=== PATIENT | male | born 1970 | race Caucasian/White ===

== ENCOUNTER 2024-01-17 20:00 | Emergency (ER) | payer BC, SELFPAY ==
[2024-01-17 20:03] VITALS: BP 122/82
--- NOTE | 2024-01-17 20:21 | ED.GENMED ---
History of Present Illness
General
Chief Complaint: Anxiety
Time Seen by Provider: 01/17/24 20:21
History of Present Illness
History of Present Illness:
TIME OF INITIAL ENCOUNTER: 8:25 PM
HPI: The patient presents due to intermittent racing thoughts throughout the day today. He woke this morning, went to the gym, but continued to feel somewhat overheated on his way to work. He had intermittent episodes of feeling overheated and
felt that he had these thoughts every 90 minutes or so that worried him. He does not necessarily describe anxiety though. He had some questionable palpitations. He states he had a recent physical with his primary care doctor and blood work which
were unremarkable. He denies any stress or anxiety currently. He drinks alcohol on the weekends and has been trying to cut back as this leads to insomnia. He did have poor sleep over night last night.
EXAM:
GENERAL: Well appearing in no distress
HEENT: Moist oral mucosa
CARDIOVASCULAR: No murmurs, normal heart rate, regular rhythm, No chest wall tenderness
PULMONARY: No respiratory distress, breath sounds are clear and equal
ABDOMEN: Soft with no peritoneal signs, no tenderness
NEUROLOGIC: Excellent strength all extremities, no coordination deficits
PSYCHIATRIC: Appropriate mental status, normal insight and judgement
EXTREMITIES: Nontender, no edema, moves all extremities equally
SKIN: No rash, no lesions
NUMBER AND COMPLEXITY OF PROBLEMS ADDRESSED AT THE ENCOUNTER
� Chronic conditions affecting care: No significant past medical history however does describe symptoms consistent with OCD
� Acute Exacerbation and/or Progression of Chronic Illness: This is an acute problem
� Differential Diagnosis includes: OCD, anxiety, hyperthyroidism
AMOUNT AND/OR COMPLEXITY OF DATA TO BE REVIEWED AND ANALYZED
� I performed an independent evaluation of and my interpretation is:
EKG: Sinus 63, leftward axis deviation, RSR' pattern
CT:
X-rays:
Laboratory Studies: CBC unremarkable, chemistries unremarkable with exception of mild transaminase elevation, alcohol undetected
Other:
� Review of other/old records: I reviewed records, the patient had a Holter monitor which was unremarkable in 2021
� Clinical information was obtained by an independent historian: I spoke to the at bedside
� Prescriptions/Medications Considered but not given:
� Further testing considered but not performed:
RISK OF COMPLICATIONS AND/OR MORBIDITY OR MORTALITY OF PATIENT MANAGEMENT
� Social determinants of health affecting care: Lives at home
� Discussion with other providers:
� Escalation of care including admission/observation vs risk of discharge considered: Currently, the patient has appropriate mental status with no abnormal psychiatric findings on exam. Given the associated overheated feeling,
will check work including TSH. He has appropriate insight and judgment currently.
ANY OTHER UPDATES:
10 PM: I reassessed patient. There has been no further episodes. Unclear etiology of patient's symptoms as she does not feel that this is necessarily related to anxiety. Throughout his stay in the emergency department, he had appropriate mental
status with no aphasia and has been interacting appropriately.
Phy Exam
Physical Exam
Physical Exam:
See HPI
Course
Orders/Labs/Results
Orders:
Orders
01/17/24 20:06
ECG [Electrocardiogram (*1)] Urgent
Reason for Study: Other
Other Reason for Exam: ANXIETY, PALPITATIONS
EKG- Treatment ONCE
01/17/24 21:04
Alcohol Urgent
Complete Blood Count/With Diff Urgent
Comprehensive Metabolic Panel Urgent
TSH Reflex To Free T4 Urgent
Abnormal Lab Results
01/17/24
21:04
Hct 37.8 L %
(39.0-52.0)
MCV 79.6 L fL
(80.0-94.0)
Glucose 111 H mg/dl
(70-99)
AST 72 H U/L
(17-59)
ALT 63 H U/L
(0-50)
01/17/24 21:04
01/17/24 21:04
Vital Signs
Initial and Last Documented VS:
Initial Vital Signs
Temp Pulse Resp BP Pulse Ox
97.8 F 70 20 122/82 100
01/17/24 20:03 01/17/24 20:03 01/17/24 20:03 01/17/24 20:03 01/17/24 20:03
Last Documented Vital Signs
Temp Pulse Resp BP Pulse Ox
97.8 F 70 20 110/82 96
01/17/24 20:03 01/17/24 20:03 01/17/24 20:03 01/17/24 22:00 01/17/24 22:00
*Critical Care Note
Total Time (30-74mins, 75-104mins- exclusive of procedures): Not Applicable
ED Attending Note
-
Portions of this chart may have been created with voice recognition software.� Occasional wrong word or��sound alike� substitutions may have occurred due to the inherent limitations of voice recognition software.
Discharge Plan
Departure
Patient Disposition: Home (Routine Discharge)
Date of Disposition: 01/17/24
Time of Disposition: 22:03
Patient with high blood pressure during this ER visit?: Yes
Discharge Problem:
Anxiety
Instructions: Anxiety, Adult (DC), BLOOD PRESSURE
Referrals:
Josiah Byrne MD [Family Provider] -
Activity Restrictions/Additional Instructions:
The cause of your symptoms is unclear. Basic blood work is unremarkable. EKG is unremarkable. Thyroid screening test was also checked and was normal. Return here if worse or other concerns.
Interventions
Interventions:
*Risk Screen - Suicide Last Done: 01/17/24 20:01
*General Assessment Last Done: 01/17/24 20:25
*Neglect/Abuse Screening Last Done: 01/17/24 20:07
ED- Fall Risk Assessment Last Done: 01/17/24 20:25
*ED COVID-19 Vaccine History Last Done: 01/17/24 20:25
ED- Cardiac Assessment Last Done: 01/17/24 20:25
ED-Psychological Assessment Last Done: 01/17/24 20:25
ED- Pulmonary Assessment Last Done: 01/17/24 20:25
Discharge Date and Time
Print Language: ANDORRAN
[2024-01-17 20:25] VITALS: BMI 25.4
[2024-01-17 20:57] VITALS: BP 121/85
[2024-01-17 21:00] VITALS: BP 121/88
[2024-01-17 21:10] LABS: % Basophils 0.8 % (0-2); % Eosinophils 1.4 % (0-6); % Immature Granulocytes 0.3 % (0-0.5); % Lymphocytes 29.3 % (20.5-51.1); % Monocytes 8.9 % (1.7-9.3); % Neutrophils 59.3 % (42.2-75.2); Absolute Basophils 0.1 10^3/uL (0-0.2); Absolute Eosinophils 0.1 10^3/uL (0-0.7); Absolute Lymphocytes 1.8 10^3/uL (1.2-3.4); Absolute Monocytes 0.6 10^3/uL (0.1-0.6); Absolute Neutrophils 3.7 10^3/uL (1.4-6.5); Hematocrit 37.8 % (39.0-52.0); Hemoglobin 13.8 g/dL (13.0-18.0); Mean Corp Hgb Conc. 36.5 g/dL (33.0-37.0); Mean Corpuscular Hgb 29.1 pg (27.0-31.0); Mean Corpuscular Volume 79.6 fL (80.0-94.0); Mean Platelet Volume 8.7 fL (7.4-10.4); Nucleated Red Blood Cells % 0 % (-); Platelet Count 149 10^3/uL (130-400); Red Blood Cell Count 4.75 10^6/uL (4.70-6.10); Red Cell Dist. Width 12.3 % (11.5-14.5); White Blood Cell Count 6.3 10^3/uL (4.8-10.8)
[2024-01-17 21:30] LABS: ALT (SGPT) 63 U/L (0-50); AST (SGOT) 72 U/L (17-59); Albumin 4.3 g/dl (3.5-5.0); Alkaline Phosphatase 44 U/L (38-126); Blood Urea Nitrogen 17 mg/dl (9-20); Calcium 9.7 mg/dl (8.4-10.2); Carbon Dioxide 23 mmol/L (22-30); Chloride 104 mmol/L (98-107); Estimated Creatinine Clearance 101 ml/min; Glucose 111 mg/dl (70-99); Potassium 4.2 mmol/L (3.5-5.1); Sodium 139 mmol/L (135-145); Total Bilirubin 0.8 mg/dl (0.2-1.3); Total Protein 6.9 g/dl (6.3-8.2); eGFR > 60.00
[2024-01-17 21:34] LABS: Alcohol None Detected
[2024-01-17 22:00] VITALS: BP 110/82
[2024-01-17 22:00] LABS: TSH Reflex To Free T4 1.91 uIU/ml (0.47-4.68)
== END 2024-01-17 23:17 | disposition home or self-care (01) ==
LOC: EMR 20:00
PROVIDERS: EMERGENCY PHYSICIAN Emergency Medicine; FAMILY PHYSICIAN Internal Medicine Geriatric Medicine
DX: F41.9 Anxiety disorder, unspecified (principal); R03.0 Elevated blood-pressure reading, without diagnosis of hypertension
CPT/HCPCS: 99284; 80053; 82077; 84443; 85025; 93005